=== PATIENT | male | born 1975 | race Hispanic/Latino ===

== ENCOUNTER 2019-08-23 12:38 | Emergency (ER) | payer OTHER ==
[~2019-08-23] VITALS: Ht 175.3 cm; Wt 72.6 kg
[2019-08-23] MEDS ORDERED: ACETAMINOPHEN 325 MG TAB PO ONE (13:15)
--- NOTE | 2019-08-23 15:29 | Emergency Department Note ---
History of Present Illnes History of Present Illness Chief Complaint: COVID PUI History of Present Illness This is a 43 year old male COVID S/S X ONE WK. AAOX4. COUGH AND SOB. AMBULATORY. Historian: Patient, Family Member Arrival Mode: Car Caustic Liquor Maker Required: No Onset (how long ago): week(s) (1) Radiation: Reports non-radiation Severity: mild Onset quality: gradual Progression: unchanged Chronicity: new Context: Reports recent illness Relieving factors: none Exacerbating factors: none Associated symptoms: Reports denies other symptoms Treatments prior to arrival: none Past Medical/Family History Physician Review I have reviewed the patient's past medical and family history. Any updates have been documented here. Past Medical History Recent Fever: No Clinical Suspicion of Infectio: No New/Unexplained Change in Ment: No Past Medical History: None Past Surgical History: None Other Surgery: LASIK EYE SURGERY Social History Smoking Cessation: Unknown if ever smoked Counseling Performed: No Alcohol Use: Occasional Any Illegal Drug Use: No TB Exposure/Symptoms: No Physically hurt or threatened: No Other Last Tetanus: UTD Last Flu: N Last Pneumovax: N Review of Systems Review of Systems Constitutional: Reports as per HPI EENTM: Reports no symptoms Cardiovascular: Reports no symptoms Respiratory: Reports as per HPI Gastrointestinal: Reports no symptoms Genitourinary: Reports no symptoms Musculoskeletal: Reports no symptoms Integumentary: Reports no symptoms Neurological: Reports no symptoms Psychological: Reports no symptoms Endocrine: Reports no symptoms Hematological/Lymphatic: Reports no symptoms Physical Exam Related Data Allergies: Coded Allergies: No Known Allergies (Unverified , 11/01/12) Triage Vital Signs Vital Signs Date Time Temp Pulse Resp B/P (MAP) Pulse Ox O2 Delivery O2 Flow Rate FiO2 08/23/19 13:00 100.1 97 16 133/74 99 Vital signs reviewed: Yes Physical Exam CONSTITUTIONAL Constitutional: Present well-developed, Present well-nourished HENT HENT: Present normocephalic, Present atraumatic, Present oropharynx clear/moist, Present nose normal HENT L/R: Present left ext ear normal, Present right ext ear normal EYES Eyes: Reports PERRL, Reports conjunctivae normal NECK Neck: Present ROM normal PULMONARY Pulmonary: Present effort normal, Present breath sounds normal CARDIOVASCULAR Cardiovascular: Present regular rhythm, Present heart sounds normal, Present capillary refill normal, Present normal rate GASTROINTESTINAL Abdominal: Present soft, Present nontender, Present bowel sounds normal GENITOURINARY Genitourinary: Present exam deferred SKIN Skin: Present warm, Present dry MUSCULOSKELETAL Musculoskeletal: Present ROM normal NEUROLOGICAL Neurological: Present alert, Present oriented x 3, Present no gross motor or sensory deficits PSYCHOLOGICAL Psychological: Present mood/affect normal, Present judgement normal Results Laboratory Laboratory Laboratory Tests Test 08/23/19 14:00 Assessment & Plan Medical Decision Making MDM O2 SAT NORMAL, LOOKS GOOD - WILL SWAB FOR COVID Reassessment Reassessment DC HOME, SELF-QUARANTINE, PRONING, F/U PCP AND RESULTS OF COVID Assessment & Plan Final Impression: (1) Viral bronchitis Depart Disposition: HOME, SELF-CARE Last Vital Signs Date Time Temp Pulse Resp B/P (MAP) Pulse Ox O2 Delivery O2 Flow Rate FiO2 08/23/19 14:38 98 08/23/19 13:05 100.8 98 19 Home Meds No Active Prescriptions or Reported Meds Medications in the ED Acetaminophen 975 mg ONCE ONCE PO Last administered on 08/23/19at 14:33; Admin Dose 975 MG; Start 08/23/19 at 13:15; Stop 08/23/19 at 13:16; Status DC LAM CHAVEZ MD Aug 23, 2019 15:29
== END 2019-08-23 17:25 | disposition home or self-care (01) ==
LOC: ER 13:11
DX: U07.1 COVID-19 (principal); J20.8 Acute bronchitis due to other specified organisms; R50.9 Fever, unspecified; R05 Cough
CPT/HCPCS: 87635; 99283